=== PATIENT | male | born 1950 | race Caucasian/White ===

== ENCOUNTER → 2019-07-19 | Outpatient (CLI) | payer MEDICARE, OTHER ==
[~2019-07-19] MED LIST: NAPROSYN500 MG PO; PRILOSEC20 M1 PO; PRILOSEC20 MG PO; VITAMIN D1000 IU PO
== END | disposition home or self-care (01) ==
LOC: US 14:47
DX: N50.3 Cyst of epididymis (principal)

== ENCOUNTER → 2021-01-07 | Day surgery (SDC) | payer MEDICARE, OTHER ==
[2021-01-04 11:31] VITALS: BP 158/62
[~2021-01-07] VITALS: Ht 170.1 cm; Wt 80.7 kg
[~2021-01-07] MED LIST changes: +COLACE100 MG PO; +PERCOCET 5-3251 EACH PO; +ZOFRAN4 MG PO
[2021-01-07 10:25] VITALS: BP 154/81
[2021-01-07 15:54] VITALS: BP 165/83
[2021-01-07 16:09] VITALS: BP 167/75
[2021-01-07 16:24] VITALS: BP 139/74
[2021-01-07 16:39] VITALS: BP 130/79
[2021-01-07 16:54] VITALS: BP 153/81
== END | disposition home or self-care (01) ==
LOC: SDC 01-04 10:00
PROVIDERS: ATTEND Surgery
DX: K41.20 Bilateral femoral hernia, without obstruction or gangrene, not specified as recurrent (principal); I10 Essential (primary) hypertension; K21.9 Gastro-esophageal reflux disease without esophagitis; F41.9 Anxiety disorder, unspecified; F32.9 Major depressive disorder, single episode, unspecified; Z87.891 Personal history of nicotine dependence; Z20.822 Contact with and (suspected) exposure to COVID-19; Z79.899 Other long term (current) drug therapy

== ENCOUNTER → 2022-03-21 | Outpatient (CLI) | payer MEDICARE, OTHER ==
[2022-03-21 11:33] LABS: BILIRUBIN Negative (Negative); BLOOD Negative (Negative); CLARITY Clear (Clear); COLOR Yellow (Yellow); GLUCOSE Negative (Negative); KETONE Negative (Negative); LEUKO ESTERASE Negative (Negative); NITRITE Negative (Negative); PH 6.5 (4.5-8.0); UROBILINOGEN 0.2 E.U./dl (0.0-1.0)
[2022-03-21 11:42] LABS: BACTERIA TRACE; WBC 0-2 wbc/hpf (0-5)
[2022-03-21 11:43] LABS: HYALINE CAST 0-2
== END | disposition home or self-care (01) ==
LOC: LAB 10:57
PROVIDERS: ATTEND Nurse Practitioner Family
DX: N40.1 Benign prostatic hyperplasia with lower urinary tract symptoms (principal); R30.0 Dysuria

== ENCOUNTER 2022-07-30 04:08 | Emergency (ER) | payer MEDICARE, OTHER ==
[~2022-07-30] VITALS: Ht 162.5 cm; Wt 72.6 kg
== END 2022-07-30 04:59 | disposition home or self-care (01) ==
LOC: ED 04:08
DX: S80.212A Abrasion, left knee, initial encounter (principal); Z23 Encounter for immunization; Z79.899 Other long term (current) drug therapy; Z90.49 Acquired absence of other specified parts of digestive tract; Z90.89 Acquired absence of other organs; W22.8XXA Striking against or struck by other objects, initial encounter; Y93.89 Activity, other specified; Y92.89 Other specified places as the place of occurrence of the external cause; Y99.8 Other external cause status

== ENCOUNTER → 2023-09-29 | Outpatient (CLI) | payer MEDICARE, OTHER | END | disposition home or self-care (01) | LOC: LAB 10:25 | PROVIDERS: ATTEND Internal Medicine | DX: I10 Essential (primary) hypertension (principal); Z79.891 Long term (current) use of opiate analgesic; Z79.899 Other long term (current) drug therapy ==